=== PATIENT | male | born 1935 | race Caucasian/White ===

== ENCOUNTER 2021-09-21 13:47 | Inpatient (IN) | payer MEDICARE ==
[~2021-09-21 13:47] MED LIST: Iopamidol-370 76% 500 ML 1 ML ONE
[2021-09-21] MEDS ORDERED: Vancomycin 1 GM/200 ML BAG ONE (14:20)
[2021-09-21] MEDS ORDERED: Cefepime 2 GM VIAL ONE (14:20)
[2021-09-21] MEDS ORDERED: Acetaminophen 500 MG TAB ONE (14:20)
[2021-09-21 14:30] LABS: Hemoglobin 14.5 g/dL (14.0-18.0); Mean Corpuscular HGB CONC 31.9 g/dL (32.0-36.0); Mean Corpuscular Hemoglobin 30.7 pg (27.0-31.0); Mean Corpuscular Volume 96.2 fL (78.0-98.0); Mean Platelet Volume 8.2 fL (7.4-10.4); Platelet Count 210 thou/uL (130-400); RBC Distribution Width 12.5 % (11.5-14.5); Red Blood Cell (RBC) Count 4.72 mill/uL (4.70-6.10)
[2021-09-21 14:45] LABS: INR-International Normal Ratio 1.1; PTT 31.8 sec (22.9-36.1); Prothrombin Time 13.9 sec (12.0-14.7)
[2021-09-21 14:48] LABS: Band 21 % (5-11); Lymphocytes 10 % (21-51); MDiff Complete? YES; Metamyelocyte 1 % (0-0); Monocytes 5 % (0-10); Neutrophil 62 % (42-75); Platelet Morphology Comment Appears Adequate; RBC Morphology Normal
[2021-09-21 14:53] LABS: ALT (SGPT) 47 U/L (8-55); AST (SGOT) 24 U/L (5-34); Albumin 3.7 g/dL (3.4-4.8); Alkaline Phosphatase 84 U/L (40-110); Anion Gap 14 mmol/L (10-20); BUN (Urea Nitrogen) 42 mg/dL (8.4-25.7); Bilirubin, Total 2.5 mg/dL (0.2-1.2); Calc. Creatinine Clearance 0 mL/min (70-130); Calcium 9.3 mg/dL (7.8-10.44); Carbon Dioxide 21 mmol/L (23-31); Chloride 104 mmol/L (98-107); Estimated GFR 31; Globulin 3.8 g/dL (2.4-3.5); Glucose 156 mg/dL (83-110); Lipase 296 U/L (8-78); Potassium 3.3 mmol/L (3.5-5.1); Protein, Total 7.5 g/dL (5.8-8.1); Sodium 136 mmol/L (136-145)
[2021-09-21 15:06] LABS: Bacteria/HPF None Seen HPF (None Seen); Bilirubin Negative (Negative); Blood, Urine Trace (Negative); Clarity Clear (Clear); Glucose, Urine (Dipstick) Normal (Negative); Ketone, Urine Negative (Negative); Leukocyte Negative Leu/uL (Negative); Nitrite Negative (Negative); Protein, Urine (Dipstick) 100 mg/dL (Neg-Trace); RBC/HPF 0-3 HPF (0-3); Specific Gravity, Urine 1.016 (1.002-1.036); Squamous Epithelial None Seen HPF (0-3); Urobilinogen Normal mg/dL (Less than 2); WBC/HPF 0-3 HPF (0-3); pH, Urine 6.5 (5.0-9.0)
[2021-09-21 16:45] LABS: SARS-CoV-2 NAA Rapid Test Not Detected (NotDetected)
[2021-09-21 17:27] LABS: Lactic Acid 2.9 mmol/L (0.5-2.2)
[2021-09-21] MEDS ORDERED: Ondansetron PF 4 MG/2 ML Vial IVP PRN (17:35)
[2021-09-21] MEDS ORDERED: Acetaminophen 650 MG Suppository PR PRN (17:35)
[2021-09-21] MEDS ORDERED: Bisacodyl 10 MG SUPP PR PRN (17:45)
[2021-09-21] MEDS ORDERED: Sodium Chloride 0.9% 1,000 ML IV SCH ×2 (17:45→21:15)
[2021-09-21] MEDS ORDERED: Morphine 2 MG/ML VIAL SLOW IVP PRN (17:48)
[2021-09-21] MEDS ORDERED: Potassium Chloride 20 MEQ in Premix Bag 1 BAG IVPB SCH (18:15)
[2021-09-21] MEDS ORDERED: Pantoprazole 40 MG VIAL IVP SCH (20:00)
[2021-09-21 20:38] VITALS: BMI 29.8
[2021-09-21] MEDS ORDERED: Heparin 5,000 UNITS/ML VIAL SC SCH (21:00)
[2021-09-21 21:32] LABS: #Lymphocytes 0.7 thou/uL (1.20-3.40); #Monocytes 0.5 thou/uL (0.11-0.59); #Neutrophils 9.3 thou/uL (1.40-6.50); %Basophils 0.1 % (0.0-1.0); %Eosinophils 0.1 % (0.0-10.0); %Lymphocytes 6.7 % (21.0-51.0); %Monocytes 4.5 % (0.0-10.0); %Neutrophils 88.6 % (42.0-75.0); Hemoglobin 12.9 g/dL (14.0-18.0); Mean Corpuscular HGB CONC 33.3 g/dL (32.0-36.0); Mean Corpuscular Hemoglobin 31.3 pg (27.0-31.0); Mean Corpuscular Volume 93.9 fL (78.0-98.0); Mean Platelet Volume 8.1 fL (7.4-10.4); Platelet Count 185 thou/uL (130-400); RBC Distribution Width 12.4 % (11.5-14.5); Red Blood Cell (RBC) Count 4.14 mill/uL (4.70-6.10); White Blood Cell (WBC) Count 10.4 thou/uL (4.8-10.8)
[2021-09-21] MEDS: Sodium Chloride 0.9% 1,000 ML IV SCH (22:13)
[2021-09-21] MEDS: Vancomycin HCl 750 MG in Sodium Chloride 0.9% 250 ML 250 ML IVPB SCH (22:48)
[2021-09-22] MEDS ORDERED: Cefepime 1 GM in Sodium Chloride 0.9% 100 ML IVPB SCH (02:00)
[2021-09-22] MEDS: Morphine 2 MG/ML VIAL SLOW IVP PRN ×2 (03:15→21:39)
[2021-09-22] MEDS: Sodium Chloride 0.9% 1,000 ML IV SCH ×4 (04:00→19:41)
[2021-09-22 04:11] LABS: #Lymphocytes 0.8 thou/uL (1.20-3.40); #Monocytes 1.1 thou/uL (0.11-0.59); #Neutrophils 10.3 thou/uL (1.40-6.50); %Basophils 0.1 % (0.0-1.0); %Eosinophils 0.2 % (0.0-10.0); %Lymphocytes 6.5 % (21.0-51.0); %Monocytes 8.6 % (0.0-10.0); %Neutrophils 84.6 % (42.0-75.0); Hemoglobin 12.1 g/dL (14.0-18.0); Mean Corpuscular HGB CONC 33.3 g/dL (32.0-36.0); Mean Corpuscular Hemoglobin 31.6 pg (27.0-31.0); Mean Corpuscular Volume 94.9 fL (78.0-98.0); Mean Platelet Volume 8.5 fL (7.4-10.4); Platelet Count 166 thou/uL (130-400); RBC Distribution Width 12.6 % (11.5-14.5); Red Blood Cell (RBC) Count 3.83 mill/uL (4.70-6.10); White Blood Cell (WBC) Count 12.2 thou/uL (4.8-10.8)
[2021-09-22 04:36] LABS: Lipase 225 U/L (8-78); Triglycerides 183 mg/dL (Less than 150)
[2021-09-22 04:49] LABS: ALT (SGPT) 30 U/L (8-55); AST (SGOT) 18 U/L (5-34); Albumin 2.8 g/dL (3.4-4.8); Alkaline Phosphatase 79 U/L (40-110); Anion Gap 15 mmol/L (10-20); BUN (Urea Nitrogen) 35 mg/dL (8.4-25.7); Bilirubin, Total 2.4 mg/dL (0.2-1.2); Calc. Creatinine Clearance 37 mL/min (70-130); Calcium 7.9 mg/dL (7.8-10.44); Carbon Dioxide 16 mmol/L (23-31); Chloride 113 mmol/L (98-107); Estimated GFR 40; Glucose 109 mg/dL (83-110); Potassium 3.7 mmol/L (3.5-5.1); Protein, Total 5.8 g/dL (5.8-8.1); Sodium 140 mmol/L (136-145)
[2021-09-22] MEDS ORDERED: Lidocaine 1% PF 5 ML VIAL ONE (08:59)
[2021-09-22] MEDS ORDERED: PROPOFOL 200 MG/20 ML VIAL ONE (08:59)
[2021-09-22] MEDS ORDERED: Ondansetron HCl/PF 4 MG/2 ML Vial IVP PRN (09:15)
[2021-09-22] MEDS: Pantoprazole 40 MG VIAL IVP SCH ×2 (11:47→21:40)
[2021-09-22] MEDS: Cefepime 2 GM in Sodium Chloride 0.9% 100 ML IVPB SCH (14:38)
[2021-09-22] MEDS: Acetaminophen 325 MG TAB PO PRN (16:35)
[2021-09-22] MEDS: Vancomycin HCl 750 MG in Sodium Chloride 0.9% 250 ML 250 ML IVPB SCH (21:40)
[2021-09-23] MEDS: Cefepime 2 GM in Sodium Chloride 0.9% 100 ML IVPB SCH ×2 (02:52→16:22)
[2021-09-23] MEDS: Acetaminophen 325 MG TAB PO PRN ×2 (03:22→16:25)
[2021-09-23] MEDS: Morphine 2 MG/ML VIAL SLOW IVP PRN ×2 (03:22→21:05)
[2021-09-23] MEDS: Sodium Chloride 0.9% 1,000 ML IV SCH ×2 (05:35→20:59)
[2021-09-23 09:15] LABS: #Eosinphils 0.1 thou/uL (0.0-0.7); #Lymphocytes 0.9 thou/uL (1.20-3.40); #Monocytes 1.3 thou/uL (0.11-0.59); #Neutrophils 9.3 thou/uL (1.40-6.50); %Eosinophils 0.5 % (0.0-10.0); %Lymphocytes 7.7 % (21.0-51.0); %Monocytes 11.1 % (0.0-10.0); %Neutrophils 80.7 % (42.0-75.0); Hemoglobin 10.8 g/dL (14.0-18.0); Mean Corpuscular HGB CONC 33.4 g/dL (32.0-36.0); Mean Corpuscular Hemoglobin 31.6 pg (27.0-31.0); Mean Corpuscular Volume 94.7 fL (78.0-98.0); Mean Platelet Volume 8.6 fL (7.4-10.4); Platelet Count 183 thou/uL (130-400); Red Blood Cell (RBC) Count 3.42 mill/uL (4.70-6.10); White Blood Cell (WBC) Count 11.5 thou/uL (4.8-10.8)
[2021-09-23 09:32] LABS: ALT (SGPT) 24 U/L (8-55); AST (SGOT) 20 U/L (5-34); Albumin 2.8 g/dL (3.4-4.8); Alkaline Phosphatase 78 U/L (40-110); Anion Gap 13 mmol/L (10-20); BUN (Urea Nitrogen) 27 mg/dL (8.4-25.7); Bilirubin, Total 2.1 mg/dL (0.2-1.2); Calc. Creatinine Clearance 45 mL/min (70-130); Calcium 8.2 mg/dL (7.8-10.44); Carbon Dioxide 17 mmol/L (23-31); Chloride 116 mmol/L (98-107); Estimated GFR 49; Globulin 3.2 g/dL (2.4-3.5); Glucose 107 mg/dL (83-110); Potassium 3.7 mmol/L (3.5-5.1); Sodium 142 mmol/L (136-145)
[2021-09-23] MEDS: Pantoprazole 40 MG VIAL IVP SCH ×2 (10:51→21:05)
[2021-09-23] MEDS ORDERED: ALPRAZolam 1 MG TAB PO PRN (16:59)
[2021-09-23] MEDS: Vancomycin HCl 750 MG in Sodium Chloride 0.9% 250 ML 250 ML IVPB SCH (21:05)
[2021-09-23] MEDS ORDERED: Vancomycin HCl 500 MG in Sodium Chloride 0.9% 100 ML IVPB SCH (22:00)
[2021-09-24] MEDS: Cefepime 2 GM in Sodium Chloride 0.9% 100 ML IVPB SCH (03:04)
[2021-09-24] MEDS: Sodium Chloride 0.9% 1,000 ML IV SCH ×4 (03:05→17:38)
[2021-09-24] MEDS: hydrALAZINE 20 MG/ML VIAL SLOW IVP PRN (04:30)
[2021-09-24 04:33] LABS: Albumin 2.8 g/dL (3.4-4.8); Anion Gap 17 mmol/L (10-20); BUN (Urea Nitrogen) 24 mg/dL (8.4-25.7); Bilirubin, Total 1.7 mg/dL (0.2-1.2); Calc. Creatinine Clearance 50 mL/min (70-130); Calcium 8.2 mg/dL (7.8-10.44); Carbon Dioxide 14 mmol/L (23-31); Chloride 114 mmol/L (98-107); Estimated GFR 56; Glucose 87 mg/dL (83-110); Potassium 3.8 mmol/L (3.5-5.1); Sodium 141 mmol/L (136-145)
[2021-09-24 04:34] LABS: ALT (SGPT) 20 U/L (8-55); AST (SGOT) 22 U/L (5-34); Alkaline Phosphatase 84 U/L (40-110); Globulin 3.2 g/dL (2.4-3.5)
[2021-09-24 05:24] LABS: Band 29 % (5-11); Eosinophils 2 % (0-10); Hemoglobin 11.2 g/dL (14.0-18.0); Lymphocytes 12 % (21-51); MDiff Complete? YES; Mean Corpuscular Hemoglobin 30.7 pg (27.0-31.0); Mean Corpuscular Volume 95.8 fL (78.0-98.0); Mean Platelet Volume 9.6 fL (7.4-10.4); Monocytes 10 % (0-10); Neutrophil 46 % (42-75); Platelet Count 224 thou/uL (130-400); RBC Distribution Width 13.2 % (11.5-14.5); Red Blood Cell (RBC) Count 3.66 mill/uL (4.70-6.10); White Blood Cell (WBC) Count 11.2 thou/uL (4.8-10.8)
[2021-09-24] MEDS ORDERED: Piperacillin/Tazobactam 3.375 GM in Sodium Chloride 0.9% 100 ML IVPB SCH ×2 (10:45→11:00)
[2021-09-24] MEDS: Pantoprazole 40 MG VIAL IVP SCH ×2 (11:21→21:43)
[2021-09-24] MEDS: Piperacillin/Tazobactam 3.375 GM in Sodium Chloride 0.9% 100 ML IVPB SCH ×2 (17:37→22:43)
[2021-09-24] MEDS: Morphine 2 MG/ML VIAL SLOW IVP PRN (21:42)
[2021-09-24] MEDS ORDERED: VANCOMYCIN 1.25 GM/250 ML BAG 1.25 GM in Premix Bag 1 BAG IVPB SCH (22:00)
[2021-09-25] MEDS: Acetaminophen 325 MG TAB PO PRN (04:01)
[2021-09-25 05:20] LABS: ALT (SGPT) 21 U/L (8-55); AST (SGOT) 27 U/L (5-34); Albumin 2.5 g/dL (3.4-4.8); Alkaline Phosphatase 100 U/L (40-110); Anion Gap 14 mmol/L (10-20); BUN (Urea Nitrogen) 22 mg/dL (8.4-25.7); Bilirubin, Total 1.7 mg/dL (0.2-1.2); Calc. Creatinine Clearance 52 mL/min (70-130); Carbon Dioxide 16 mmol/L (23-31); Chloride 114 mmol/L (98-107); Estimated GFR 59; Glucose 99 mg/dL (83-110); Magnesium 2.1 mg/dL (1.6-2.6); Potassium 3.2 mmol/L (3.5-5.1); Protein, Total 5.5 g/dL (5.8-8.1); Sodium 141 mmol/L (136-145)
[2021-09-25] MEDS: Sodium Chloride 0.9% 1,000 ML IV SCH ×4 (05:37→23:28)
[2021-09-25 05:50] LABS: Band 17 % (5-11); Eosinophils 1 % (0-10); Hemoglobin 11.1 g/dL (14.0-18.0); Hypochromia SLIGHT = 6-15 cells (100X) (0-5/hpf); Lymphocytes 2 % (21-51); MDiff Complete? YES; Mean Corpuscular HGB CONC 33.6 g/dL (32.0-36.0); Mean Corpuscular Hemoglobin 31.8 pg (27.0-31.0); Mean Corpuscular Volume 94.6 fL (78.0-98.0); Mean Platelet Volume 8.5 fL (7.4-10.4); Monocytes 14 % (0-10); Neutrophil 65 % (42-75); Platelet Count 300 thou/uL (130-400); Platelet Morphology Comment Appears Adequate; Reactive Lymphocytes 1 % (0-10); White Blood Cell (WBC) Count 12.7 thou/uL (4.8-10.8)
[2021-09-25] MEDS: Piperacillin/Tazobactam 3.375 GM in Sodium Chloride 0.9% 100 ML IVPB SCH ×3 (06:40→23:27)
[2021-09-25] MEDS ORDERED: Potassium Chloride 10 MEQ in Premix Bag 1 BAG IVPB SCH (08:15)
[2021-09-25] MEDS: Pantoprazole 40 MG VIAL IVP SCH ×2 (10:17→23:27)
[2021-09-26] MEDS: hydrALAZINE 20 MG/ML VIAL SLOW IVP PRN (01:17)
[2021-09-26 04:28] LABS: #Eosinphils 0.2 thou/uL (0.0-0.7); #Lymphocytes 1.3 thou/uL (1.20-3.40); #Neutrophils 11.6 thou/uL (1.40-6.50); %Basophils 0.2 % (0.0-1.0); %Eosinophils 1.7 % (0.0-10.0); %Lymphocytes 9.4 % (21.0-51.0); %Monocytes 6.9 % (0.0-10.0); %Neutrophils 81.8 % (42.0-75.0); Hemoglobin 11.4 g/dL (14.0-18.0); Mean Corpuscular HGB CONC 33.3 g/dL (32.0-36.0); Mean Corpuscular Hemoglobin 31.4 pg (27.0-31.0); Mean Corpuscular Volume 94.3 fL (78.0-98.0); Mean Platelet Volume 8.4 fL (7.4-10.4); Platelet Count 388 thou/uL (130-400); RBC Distribution Width 13.3 % (11.5-14.5); Red Blood Cell (RBC) Count 3.63 mill/uL (4.70-6.10); White Blood Cell (WBC) Count 14.1 thou/uL (4.8-10.8)
[2021-09-26 04:55] LABS: ALT (SGPT) 25 U/L (8-55); AST (SGOT) 30 U/L (5-34); Albumin 2.6 g/dL (3.4-4.8); Alkaline Phosphatase 116 U/L (40-110); Anion Gap 12 mmol/L (10-20); BUN (Urea Nitrogen) 18 mg/dL (8.4-25.7); Bilirubin, Total 1.5 mg/dL (0.2-1.2); Calc. Creatinine Clearance 57 mL/min (70-130); Calcium 8.1 mg/dL (7.8-10.44); Carbon Dioxide 17 mmol/L (23-31); Chloride 119 mmol/L (98-107); Estimated GFR 66; Glucose 92 mg/dL (83-110); Potassium 3.3 mmol/L (3.5-5.1); Protein, Total 5.6 g/dL (5.8-8.1); Sodium 145 mmol/L (136-145)
[2021-09-26] MEDS: Piperacillin/Tazobactam 3.375 GM in Sodium Chloride 0.9% 100 ML IVPB SCH ×3 (06:31→22:21)
[2021-09-26] MEDS ORDERED: Non-Formulary Item 1 EACH (Trazodone Hcl [Trazodone Hcl] 100 MG Tablet) PO PRN (07:55)
[2021-09-26] MEDS ORDERED: Clopidogrel Bisulfate 75 MG TAB PO SCH (09:00)
[2021-09-26] MEDS ORDERED: Aspirin 81 mg Enteric Coated Tablet PO SCH (09:00)
[2021-09-26] MEDS: Sodium Chloride 0.9% 1,000 ML IV SCH ×2 (09:19→18:04)
[2021-09-26] MEDS: Pantoprazole 40 MG VIAL IVP SCH ×2 (09:19→20:54)
[2021-09-26] MEDS: Metoprolol Tartrate 50 MG TAB PO SCH ×2 (09:20→20:54)
[2021-09-26] MEDS: Gabapentin 300 MG CAP PO SCH ×3 (10:55→20:53)
[2021-09-26] MEDS: Fenofibrate 48 MG TAB PO SCH (10:55)
[2021-09-26] MEDS ORDERED: Iopamidol 370 76% 100 ML VIAL ONE (11:24)
[2021-09-26] MEDS: Lisinopril 5 MG TAB PO SCH (20:54)
[2021-09-26] MEDS ORDERED: Atorvastatin Calcium 20 MG TAB PO SCH (21:00)
[2021-09-27 04:35] LABS: #Eosinphils 0.2 thou/uL (0.0-0.7); #Lymphocytes 1.9 thou/uL (1.20-3.40); #Neutrophils 11.8 thou/uL (1.40-6.50); %Basophils 0.1 % (0.0-1.0); %Eosinophils 1.3 % (0.0-10.0); %Lymphocytes 12.5 % (21.0-51.0); %Neutrophils 79.1 % (42.0-75.0); Hemoglobin 11.8 g/dL (14.0-18.0); Mean Corpuscular HGB CONC 31.5 g/dL (32.0-36.0); Mean Corpuscular Hemoglobin 30.4 pg (27.0-31.0); Mean Corpuscular Volume 96.5 fL (78.0-98.0); Mean Platelet Volume 8.3 fL (7.4-10.4); Platelet Count 493 thou/uL (130-400); RBC Distribution Width 13.7 % (11.5-14.5)
[2021-09-27 04:55] LABS: ALT (SGPT) 32 U/L (8-55); AST (SGOT) 42 U/L (5-34); Albumin 2.9 g/dL (3.4-4.8); Alkaline Phosphatase 139 U/L (40-110); Anion Gap 14 mmol/L (10-20); BUN (Urea Nitrogen) 15 mg/dL (8.4-25.7); Bilirubin, Total 1.2 mg/dL (0.2-1.2); Calc. Creatinine Clearance 56 mL/min (70-130); Calcium 8.3 mg/dL (7.8-10.44); Carbon Dioxide 18 mmol/L (23-31); Chloride 113 mmol/L (98-107); Estimated GFR 64; Globulin 3.3 g/dL (2.4-3.5); Glucose 98 mg/dL (83-110); Potassium 3.2 mmol/L (3.5-5.1); Protein, Total 6.2 g/dL (5.8-8.1); Sodium 142 mmol/L (136-145)
[2021-09-27] MEDS ORDERED: Piperacillin/Tazobactam 3.375 GM in Sodium Chloride 0.9% 100 ML IVPB SCH (08:00)
[2021-09-27] MEDS ORDERED: Potassium Bicarbonate/Cit Ac 20 MEQ TAB PO SCH (08:30)
[2021-09-27] MEDS: Pantoprazole 40 MG VIAL IVP SCH (10:27)
[2021-09-27] MEDS: Fenofibrate 48 MG TAB PO SCH (10:28)
[2021-09-27] MEDS: Gabapentin 300 MG CAP PO SCH ×2 (10:28→14:56)
[2021-09-27] MEDS: Metoprolol Tartrate 50 MG TAB PO SCH (10:28)
[2021-09-27] MEDS: Lisinopril 5 MG TAB PO SCH (10:29)
[2021-09-27] MEDS: Sodium Chloride 0.9% 1,000 ML IV SCH (11:21)
[2021-09-27 11:54] VITALS: BP 174/86; TEMP 97.4
== END 2021-09-27 15:30 | disposition home or self-care (01) | DRG 871 ==
LOC: ERS 13:47 → 2NO 17:34
PROVIDERS: ADMIT Internal Medicine; ATTEND Internal Medicine
PROC: 3E03329 Introduction of Other Anti-infective into Peripheral Vein, Percutaneous Approach (ICD-10-PCS; principal; 2021-09-21)
PROC: 0DJ08ZZ Inspection of Upper Intestinal Tract, Via Natural or Artificial Opening Endoscopic (ICD-10-PCS; 2021-09-22)
DX: A41.51 Sepsis due to Escherichia coli [E. coli] (principal); K85.90 Acute pancreatitis without necrosis or infection, unspecified; K22.6 Gastro-esophageal laceration-hemorrhage syndrome; K86.3 Pseudocyst of pancreas; N17.9 Acute kidney failure, unspecified; Z20.822 Contact with and (suspected) exposure to COVID-19; N18.32 Chronic kidney disease, stage 3b; E87.6 Hypokalemia; I12.9 Hypertensive chronic kidney disease with stage 1 through stage 4 chronic kidney disease, or unspecified chronic kidney disease; E78.5 Hyperlipidemia, unspecified; D63.1 Anemia in chronic kidney disease; Z90.5 Acquired absence of kidney; Z95.5 Presence of coronary angioplasty implant and graft; Z87.891 Personal history of nicotine dependence; Z83.79 Family history of other diseases of the digestive system; Z85.51 Personal history of malignant neoplasm of bladder; Z95.1 Presence of aortocoronary bypass graft; Z85.528 Personal history of other malignant neoplasm of kidney; Z79.899 Other long term (current) drug therapy; Z79.02 Long term (current) use of antithrombotics/antiplatelets; Z79.82 Long term (current) use of aspirin
CPT/HCPCS: 36415; 51701; 71045; 74177; 76705; 80053; 80202; 81003; 81015; 82274; 83605; 83690; 83735; 84478; 84484; 85025; 85610; 85730; 86850; 86900; 86901; 87040; 87077; 87086; 87149; 87186; 93005; 93010; 94760; 96361; 96365; 96366; C9113; J0360; J0692; J2270; J2543; J2704; J3370; J3480; J3490; J7050; Q9967